=== PATIENT | female | born 1975 | race Caucasian/White ===

== ENCOUNTER 2025-04-01 22:12 | Emergency (ER) | payer BC, SELFPAY ==
[2025-04-01 22:13] VITALS: BMI 35.7
[2025-04-01 22:20] VITALS: BP 112/68; PULSE 86; RESP 20; TEMP 36.6; O2SAT 97
--- NOTE | 2025-04-01 23:27 | XR_ITS ---
Examination: CT abdomen with intravenous contrast CT pelvis with intravenous contrast 2-D coronal reconstructions 2-D sagittal reconstructions Date and time of exam:April 03, 2025 0057 hours Comparison July 11, 2024 INDICATIONS: Abdominal pain beginning 2 days ago. CTDI: vol (mGy) 13.5 DLP: (mGycm) 705 Technique: Multiple axial sections of the abdomen and pelvis have been obtained. 64 slice high-resolution scanner used. 3 mm axial sections have been obtained, post intravenous injection 60 cc Isovue 370 2-D sagittal, coronal reconstructions obtained. Low dose protocols were performed. One or more of the following dose reduction techniques were used; automated exposure control, adjustment of the mA and/or KV according to patient size, use of iterative reconstruction technique. Findings: Small liver cyst 8 mm No gallstones No pancreatic mass Abdominal aorta normal size No renal or ureteral calculi, no hydronephrosis Normal appendix No bowel obstruction Mildly enlarged fundus of uterus Urinary bladder intact IMPRESSION: Normal appendix No acute process in the abdomen or pelvis
--- NOTE | 2025-04-01 23:31 | PD.EDRME ---
Rapid Medical Screening Exam RME Arrival date/time: 04/01/25 22:12 Chief Complaint: Abdominal Pain Time Seen by Provider: 04/01/25 23:10 Vital signs: Vital Signs Temperature 98 F 04/01/25 22:20 Pulse Rate 86 04/01/25 22:20 Respiratory Rate 20 04/01/25 22:20 Blood Pressure 112/68 04/01/25 22:20 Pulse Oximetry (%) 97 04/01/25 22:20 Oxygen Delivery Method Room Air 04/01/25 22:20 Vital signs reviewed by provider: Yes RME Narrative: 49-year-old female presents to the ED with a complaint of right lower quadrant abdominal pain with nausea for the past 2 hours. She denies fever chills, vomiting or diarrhea. She denies any urinary frequency or dysuria however she has noted some pink tingeing in her urine. Her last menstrual cycle was mid February. She has had a tubal ligation. Labs, urine, CT abdomen and pelvis, and medications ordered. I have greeted and performed a focused initial assessment of this patient. A comprehensive ED assessment and evaluation of the patient, analysis of all test results, and completion of the medical decision making process will be conducted by additional ED providers.
[2025-04-02 00:02] LABS: Collection Type, Urine Clean Catch
[2025-04-02] MEDS: KETOROLAC INJ 60 MG/2 ML VIAL 30 MG IM (00:05)
[2025-04-02] MEDS: ONDANSETRON ODT 4 MG TABRAP PO (00:05)
[2025-04-02 00:07] LABS: Basophils # (Auto) 0.1 Thou/mm3 (0.0-0.2); Basophils % (Auto) 1 % (0-2.5); Eosinophils # (Auto) 0.1 Thou/mm3 (0.0-0.5); Eosinophils % (Auto) 1 % (0-10); Hematocrit 24.6 % (36.0-46.0); Immature Granulocytes % (Auto) 0 % (0-0); Immature Granulocytes Auto 0.01 Thou/mm3 (0.00-0.00); Lymphocytes # (Auto) 1.5 Thou/mm3 (1.0-4.8); Lymphocytes % (Auto) 19 % (10-50); Mean Corpuscular HGB Conc 29.7 g/dl (31.0-37.0); Mean Corpuscular Hemoglobin 21.6 pg (25.0-35.0); Mean Corpuscular Volume 73 fL (80-100); Monocytes # (Auto) 0.6 Thou/mm3 (0.0-0.8); Monocytes % (Auto) 7 % (0-12); Neutrophils # (Auto) 5.7 Thou/mm3 (1.8-7.7); Neutrophils % (Auto) 73 % (37-80); Nucleated Red Blood Cell % 0 /100 WBC (0); Platelet Count 462 Thou/mm3 (140-440); RDW Standard Deviation 43.7 fL (36.4-46.3); Red Blood Count 3.38 Miln/mm3 (4.00-5.20); White Blood Count 7.8 Thou/mm3 (3.6-11.0)
[2025-04-02 00:09] LABS: Hemoglobin 7.3 g/dL (12.0-16.0)
[2025-04-02 00:12] LABS: HCG Qualitative,Urine Negative
[2025-04-02 00:22] LABS: Bacteria,Urine Rare; Bilirubin,Urine 1+ (Negative); Blood,Urine Negative (Negative); Clarity,Urine Clear (Clear/Hazy); Color,Urine Yellow (Lt Yel-Yel); Glucose, Urine Negative (Negative); Ketones,Urine Trace (Negative); Leukocyte Esterase,Urine Negative (Negative); Nitrite,Urine Negative (Negative); Protein,Urine 1+ (Neg - Trace); RBC,Urine 58 /hpf (0-3); Specific Gravity,Urine 1.047 (1.001-1.035); Squamous Epithelial Cell,Urine 3 /hpf (0-5); WBC,Urine 2 /hpf (0-5)
[2025-04-02 00:34] LABS: Albumin, Serum 4.5 gm/dL (3.5-5.0); Albumin/Globulin Ratio 1.7 (1.2-2.2); Alkaline Phosphatase 45 U/L (46-116); Amylase 96 U/L (30-118); Anion Gap 12 (7-16); Aspartate Amino Transferase 13 U/L (0-34); BUN/Creatinine Ratio 8 Ratio (12-20); Bilirubin,Total 0.3 mg/dL (0.3-1.2); Blood Urea Nitrogen 8 mg/dL (9-23); Carbon Dioxide 24.3 mMol/L (20.0-31.0); Chloride 107 mMol/L (98-107); Estimated Creatinine Clearance 79.5 mL/min (>60); Globulin 2.7 gm/dL (2.3-3.5); Glucose 103 mg/dL (74-106); Lipase 53 U/L (12-53); Osmolality,Calculated 283 (275-295); Potassium 3.9 mMol/L (3.4-5.1); Sodium 143 mMol/L (136-145); Total Protein 7.2 gm/dL (5.7-8.2); eGFR > 60 See Note
[2025-04-02 00:39] LABS: Alanine Aminotransferase < 7 U/L (10-49)
[2025-04-02 01:17] VITALS: BP 149/87; PULSE 79; RESP 16; TEMP 36.9; O2SAT 100
[2025-04-02] MEDS: SODIUM CHLORIDE 0.9% 1000 ML 1,000 ML 999 ML IV ×2 (02:15→02:30)
--- NOTE | 2025-04-02 02:17 | EDNOTE_ITS ---
ED General RME/HPI General Chief complaint: Abdominal Pain Stated complaint: RIGHT LOWER ABD PAIN WITH NAUSEA Time Seen by Provider: 04/01/25 23:10 Arrival date/time: 04/01/25 22:12 RME / HPI RME / HPI narrative: This patient is a 49-year-old female with past medical history of chronic anemia, history of irregular menstrual period, history of diverticulosis, hemorrhoids, Hx of gastritis based on chart review performed in 2023 presented to the ED on 04/02/2025 with chief complaint of right lower quadrant pain associated with nausea from past 1 day started that evening around 7 PM. Patient reported that she also vomited x 3. Vomitus consisted of food particles without any blood. Initially she reported that pain was stabbing in nature on movement however when she lays down flat pain is more dull in character constant rated as 8/10 and only relieved with Toradol given in the ED. Patient ate sandwich this morning however vomited after that. She had subjective feeling of fever however denied any loose stools. She recently started OCPs 2 months ago to regulate her menstrual cycle. Her last LMP was March 15, 2025. Menstrual cycle last 5 to 6 days and soaks 1 pad every hour in the middle of the cycle. She had tubal ligation 17 years ago and since then she had irregular cycle however had been more irregular with heavy cycle from last 1 year. She also reported to have dyspareunia. Patient appears to be clinically dehydrated with dry mucous membrane with mild sinus tachycardia. Examination was significant for tenderness and rebound tenderness on right lower quadrant. Vitals showed mildly elevated blood pressure. Patient was afebrile and saturating well on room air. Labs were significant for hemoglobin 7.3 dropped from 9.6 since 06/2024. Platelet count 462. CHEM panel was unremarkable. Kidney functions were stable with BUN 8 and creatinine 1.0. Liver enzymes unremarkable. Lipase was normal. Urine analysis showed clear urine with pH 6.0 specific gravity 1.047, protein plus, trace ketones. Bilirubin 1+. RBCs 58+. Per chart review,Transvaginal ultrasound showed benign cyst in the cervix. CT abdomen pelvis showed enlarged fundus of uterus and 10 mm hypodense mass in the cervix. CT abdomen pelvis showed no acute pathology. PMH: As above PSH: Tubal ligation x 17 yrs ago SH: Denies smoking, drinking alcohol. No history of illicit drug use Allergies: NKDA Home medications: Ferrous sulfate, OCPs Patient was given Zofran and ketorolac to help with nausea and pain respectively. 2 L bolus of fluid and ketorolac was given. Additionally, 15 mg ketorolac was given as pain was recurring. Patient was also given juice to evaluate any other episode of vomiting. 1 unit PRBC will be transfused and patient will be discharged later as CT abdomen did not show findings consistent to be admitted in the hospital setting. She did had mild spotting and was recommended to follow-up with the [facility] for further evaluation of iron deficiency anemia and would benefit from IV iron therapy. She would need follow-up with [facility] as outpatient. Patient can be discharged after 1 unit of blood transfusion. Patient was advised to follow-up with the PCP as outpatient for referral to [facility] for evaluation of irregular menstrual cycle Advised to continue ferrous sulfate 325 mg daily Appendicitis and any other intra-abdominal pathology was ruled out with CT abdomen pelvis with contrast Patient can be safely discharged after PRBC transfusion and once her abdominal pain subsides Patient would need anemia workup including iron panel, ferritin, reticulocyte count as outpatient In case of worsening signs symptoms patient was advised to call 911 or come back to the ED MD complaint: Nausea and right lower quadrant pain Onset (ago): day(s) (1) Location: abdomen (RLQ) Radiation: extremity (Right lower extremity) Severity: moderate Severity scale (1-10): 7 Quality: dull Consistency: constant Relieving factors: medication (Ketorolac) Associated symptoms: nausea/vomiting Related Data Previous Rx's ?Medication ?Instructions ?Recorded famotidine 20 mg tablet 20 mg PO BID 30 days #60 tab s 07/13/24 Allergies Allergy/AdvReac Type Severity Reaction Status Date / Time No Known Allergies Allergy Verified 04/01/25 22:13 Review of Systems Review of Systems Systems Reviewed: All systems reviewed, normal except as documented Past Medical History Past Medical History Comments PMH COMMENT: PMH: Anemia PSH: Tubal ligation SH: Does not drink, smoke, or use illicit drugs. Allergies:?NKDA Medications: Iron supplements ED Exam Narrative Physical exam: GENERAL APPEARANCE: Patient is AO x 3, pale appearing female in mild distress due to abdominal discomfort. Saturating well on room air. HEENT: NC, AT. Dry mucous membrane. EOMI, clear conjunctiva, oropharynx clear. NECK: Supple without lymphadenopathy. No stiffness or restricted ROM. HEART: Regular rate and regular rhythm, normal S1/S2, no m/r/g LUNGS: CTAB, moving air well. No crackles or wheezes are heard. ABDOMEN: Soft, right lower quadrant tenderness on McBurney's point, nondistended with good bowel sounds heard. BACK: No CVAT, no obvious deformity. EXTREMITIES: Without cyanosis, clubbing or edema. NEUROLOGICAL: Grossly nonfocal. Alert and oriented, moving all 4 extremities. CN not formally tested but appear grossly intact. Observed to ambulate with normal gait. Skin: Warm and dry without any rash. Pallor Pscyh: Appropriate mood and affect Course Quality Measures none Orders Category Date Time Status CT Screening NOW Care 04/01/25 23:[address] Screening X1 Care 04/01/25 23:27 Active Insert IV NOW Care 04/01/25 23:29 Active NPO STAT Care 04/01/25 23:27 Active Occult Blood,Stool (Nursing) NOW Care 04/02/25 00:18 Active Transfuse,blood/blood products NOW Care 04/02/25 03:[address] abdomen pelvis w con Stat Exams 04/01/25 23:27 Taken Amylase Stat Lab 04/01/25 23:46 Completed CBC Stat Lab 04/01/25 23:46 Completed Comprehensive Metabolic Panel Stat Lab 04/01/25 23:46 Completed HCG Qualitative,Urine Stat Lab 04/01/25 23:53 Completed Lipase Stat Lab 04/01/25 23:46 Completed Type and Screen Stat Lab 04/02/25 00:38 Results Urinalysis Stat Lab 04/01/25 23:53 Completed prbc [Red Blood Cells] Stat Lab 04/02/25 00:38 Results Ketorolac Inj [Toradol Inj] Med 04/02/25 04:00 Discontinued 15 mg IVP X1 ONE Ketorolac Inj [Toradol Inj] Med 04/01/25 23:29 Discontinued 30 mg IM X1 ONE Ondansetron Odt [Zofran Odt] Med 04/01/25 23:29 Discontinued 4 mg PO X1 ONE Sodium Chloride 0.9% 1000 ml [Ns] 1,000 ml Med 04/02/25 01:51 Discontinued IV 999 mls/hr Sodium Chloride 0.9% 1000 ml [Ns] 1,000 ml Med 04/02/25 02:15 Discontinued IV 999 mls/hr Vital Signs Vital signs: Vital Signs Temperature 98 F 04/01/25 22:20 Pulse Rate 86 04/01/25 22:20 Respiratory Rate 20 04/01/25 22:20 Blood Pressure 112/68 04/01/25 22:20 Pulse Oximetry (%) 97 04/01/25 22:20 Oxygen Delivery Method Room Air 04/01/25 22:20 Discharge Plan Plan Patient Disposition: HOME (Self Care) Prescriptions/Referrals Prescriptions/Med Rec: No Action famotidine 20 mg tablet 20 mg PO BID 30 Days Qty: 60 2RF Referrals: Charbel Baker MD [Primary Care Provider] - In 1 week Problem List Clinical Impression: Abdominal pain, RLQ, Anemia Patient/Caregiver Discharge Instructions Other Activity Instructions:: Patient was advised to follow-up with the PCP as o utpatient for referral to [facility] for evaluation of irregular menstrual cycle Appendicitis and any other intra-abdominal pathology was ruled out with CT abdomen pelvis with contrast Patient can be safely discharged after PRBC transfusion and once her abdominal pain subsides Patient would need anemia workup including iron panel, ferritin, reticulocyte count as outpatient In case of worsening signs symptoms patient was advised to call 911 or come back to the ED Education Materials: Anemia Print Language: Tajik Stand Alone Forms: Marilee Award Info., Patient Portal Info Letter MDM Medication Administration(s) Medication Administration History Discontinued Medications Sodium Chloride (Ns) 1,000 mls @ 999 mls/hr IV .Q1H1M ONE Stop: 04/02/25 02:51 Last Infusion: 04/02/25 03:49 Dose: Infused Documented By: Admin: 04/02/25 02:15 Dose: 999 mls/hr Documented By: MARGUERITE Sodium Chloride (Ns) 1,000 mls @ 999 mls/hr IV .Q1H1M ONE Stop: 04/02/25 03:15 Last Infusion: 04/02/25 03:50 Dose: Infused Documented By: Admin: 04/02/25 02:30 Dose: 999 mls/hr Documented By: AMY Ketorolac Tromethamine (Ketorolac Inj 60 Mg/2 Ml Vial) 30 mg IM X1 ONE Stop: 04/01/25 23:30 Last Admin: 04/02/25 00:05 Dose: 30 mg Documented By: CHET Ketorolac Tromethamine (Ketorolac Inj 30 Mg/Ml Vial) 15 mg IVP X1 ONE Stop: 04/02/25 04:01 Last Admin: 04/02/25 04:01 Dose: 15 mg Documented By: AMY Ondansetron HCl (Ondansetron Odt 4 Mg Tabrap) 4 mg PO X1 ONE; Protocol Stop: 04/01/25 23:30 Last Admin: 04/02/25 00:05 Dose: 4 mg Documented By: CHET
--- NOTE | 2025-04-02 02:24 | PRELIM_ITS ---
CT scan of the abdomen and pelvis with intravenous contrast (axial sections with sagittal and coronal reformats) April 02, 2025 0057 hours Clinical History: Concern for appendicitis. Comparison: None. Findings: Scarring in the lingula. The liver, gallbladder, pancreas, spleen, kidneys and adrenals are unremarkable. No evidence of bowel obstruction. The appendix is within normal limits. There is no mesenteric or retroperitoneal adenopathy. The urinary bladder is nondistended, limited evaluation. There is no free fluid or free air. The osseous structures are unremarkable. The uterus and ovaries are within normal limits. Impression: No evidence of acute intra-abdominal or pelvic pathology. No evidence of appendicitis. Report Electronically Signed By: Kiet Woods 04/02/2025 2:23:30 AM [EST]
[2025-04-02 03:00] VITALS: BP 134/76; PULSE 72; RESP 16; TEMP 36.9; O2SAT 100
[2025-04-02] MEDS: KETOROLAC INJ 30 MG/ML VIAL 15 MG IVP (04:01)
[2025-04-02 04:43] VITALS: BP 128/66; PULSE 72; RESP 16; TEMP 37
[2025-04-02 05:00] VITALS: BP 114/66; PULSE 81; RESP 16; TEMP 36.8; O2SAT 97
[2025-04-02 05:15] VITALS: BP 114/57; PULSE 79; RESP 16; TEMP 36.9; O2SAT 99
[2025-04-02 07:11] VITALS: BP 124/68; PULSE 61; RESP 15; TEMP 36.9; O2SAT 99
== END 2025-04-02 07:22 | disposition home or self-care (01) ==
PROVIDERS: Physician Assistant; Emergency Provider Emergency Medicine; PCP Family Medicine
DX: D64.9 Anemia, unspecified (principal); R10.31 Right lower quadrant pain
CPT/HCPCS: 36415; 36430; 74177; 80053; 81001; 81025; 82150; 83690; 85025; 86850; 86900; 86901; 86923; 96372; 99285; A4649; J1885; J7030; P9016; Q0162; Q9967